=== PATIENT | female | born 1990 | race Caucasian/White ===

== ENCOUNTER → 2020-05-10 17:10 | Outpatient (CLI) | payer SELFPAY ==
[2020-05-10 18:03] LABS: HCG Quantitative /Beta subunit < 2.4 mIU/mL
== END ==
PROVIDERS: Referring Provider Specialist; Visit Provider Specialist
DX: Z34.90 Encounter for supervision of normal pregnancy, unspecified, unspecified trimester (principal)
CPT/HCPCS: 36415; 84702

== ENCOUNTER → 2020-08-27 11:27 | Outpatient (CLI) | payer OTHER, SELFPAY ==
[2020-08-27] MEDS: COVID-19 VACC #1, MRNA(MOD) 100 MCG/0.5 ML VIAL IM (11:35)
== END ==
PROVIDERS: Visit Provider Internal Medicine
DX: Z23 Encounter for immunization (principal)
CPT/HCPCS: 0011A; 91301

== ENCOUNTER → 2020-09-24 13:14 | Outpatient (CLI) | payer OTHER, SELFPAY ==
[2020-09-24] MEDS: COVID-19 VACC #2, MRNA(MOD) 100 MCG/0.5 ML VIAL IM (13:30)
== END ==
PROVIDERS: Visit Provider Internal Medicine
DX: Z23 Encounter for immunization (principal)
CPT/HCPCS: 0012A; 91301

== ENCOUNTER → 2024-05-26 11:47 | Outpatient (CLI) | payer OTHER, SELFPAY ==
[2024-05-26 12:54] LABS: Add Manual Diff / Slide Review NO; Basophils Absolute Auto 100 /uL (0-100); Basophils Percent Auto 0.5 % (0-2); Eosinophils Absolute Auto 300 /uL (0-450); Eosinophils Percent Auto 2.5 % (2-4); Hematocrit 35.6 % (36-46); Lymphocytes Absolute Auto 3000 /uL (1100-4500); Lymphocytes Percent Auto 22.3 % (25-40); Mean Corpuscular HGB Conc 33.8 % (30-36); Mean Corpuscular Volume 91.8 fL (80-100); Monocytes Absolute Auto 1000 /uL (0-900); Monocytes Percent Auto 7.2 % (3-14); Neutrophils Absolute Auto 9200 /uL (1500-7000); Neutrophils Percent Auto 67.5 % (50-75); Platelet Count 280 X10^3/uL (150-400); Red Blood Cell Count 3.88 X10^6/uL (4.0-5.2); Red Cell Distribution Width 13.2 % (11.6-14.8); White Blood Cell Count 13.6 X10^3/uL (4.5-11.0)
[2024-05-26 13:15] LABS: Natera Collection Specimen Collected
[2024-05-26 15:46] LABS: Hepatitis B Surface Antigen NEGATIVE s/c (NEGATIVE); Rubella Antibody IgG 27.6 IU/mL (>15)
[2024-05-26 16:06] LABS: HIV 1 & 2 Ab/Ag 4th Gen Combo NEGATIVE (NEGATIVE); Hep C Virus Ab w/Reflex Quant NEGATIVE s/c (NEGATIVE)
[2024-05-27 05:40] LABS: RPR Screen Non Reactive (Non Reactive)
[2024-05-27 08:36] LABS: Varicella IgG Antibody Reactive (Non Reactive)
== END ==
LOC: LAB 11:48
PROVIDERS: Referring Provider Student in an Organized Health Care Education/Training Program; Visit Provider Student in an Organized Health Care Education/Training Program
DX: Z34.81 Encounter for supervision of other normal pregnancy, first trimester (principal); Z3A.10 10 weeks gestation of pregnancy
CPT/HCPCS: 36415; 80055; 86787; 86803; 86850; 86900; 86901; 87086; 87389

== ENCOUNTER → 2024-08-07 14:28 | Outpatient (CLI) | payer OTHER, SELFPAY ==
--- NOTE | 2024-08-07 14:29 | DI.US.S_ITS ---
PROCEDURE: US OB >= 14 WEEKS FETUS INDICATIONS: 20 week anatomy scan OUTSIDE/PRIOR DATING DATA: Last menstrual period (LMP): Not provided LMP-based estimated date of delivery (LAZARA): 12/19/24. First dating scan (date and location): Not available Estimated date of delivery (LAZARA) from first dating scan: Not available. The calculations are made using the above LAZARA of 12/19/24 TECHNIQUE: Real-time scanning was performed of the fetus, with image documentation and biometric measurements. Endovaginal scanning: Not needed COMPARISON: None. FINDINGS: General: A single living intrauterine gestation is present. Presentation: Variable at this time. Placenta: Placental position is anterior , without previa. Amniotic fluid index: 15.1 cm, normal range is 5-24 cm. Single deepest vertical pocket is 4.1 cm. heart rate: 153 beats per minute. Maternal cervical canal: 3.8 cm long. Normal lower limit is 2.5 cm. biometrics: Biparietal diameter: 4.8 cm, 20 weeks 4 days Head circumference: 17.5 cm, 20 weeks 0 days Abdominal circumference: 16.6 cm, 21 weeks 4 days Femur length: 3.3 cm, 20 weeks 1 day Clinically estimated gestational age: 20 weeks 6 days Composite gestational age from present scan: 20 weeks 4 days and there has been appropriate interval growth. Estimated weight and percentile: 380 g, 43rd percentile Anatomic survey: Neuro: Ventricles are non-dilated at less than 10 mm. Cisterna magna is normal at 3-11 mm. Cerebellum is normal in size and morphology. Nuchal skin fold: Normal at less than 6 mm between 14-21 weeks gestational age. Face: Nose and lips, facial profile are normal. Spine: No evidence for spina bifida. Heart: 4-chambered heart is present, with normal ventricular outflow tracts. Diaphragm: Diaphragm is intact. Stomach: Left-sided stomach is present. Kidneys: No hydronephrosis. Normal is less than 5 mm in 2nd trimester, less than 7 mm in 3rd trimester. Cord: 3-vessel cord has possible marginal cord insertion at the superior placenta. Bladder: Normal in size. Extremities: All 4 extremities identified. IMPRESSION: Appropriate interval growth, no anomaly seen. Quality of visualization of the cord insertion is limited, and raises the question of possible marginal cord insertion at the superior placenta. Follow-up repeat limited OB ultrasound could be performed if clinically desired to attempt improve visualization of the cord insertion. We strive to produce accurate, complete, and clear reports of imaging services. To assist us in improving patient care, this report was composed using standard report templates and voice recognition software. Therefore, it may contain abnormal punctuation, insertions and/or omissions. Occasional wrong-word or sound-alike substitutions may occur. Though we review the report and make efforts to correct it, we do recommend that the report be read carefully in proper context to recognize any text inaccuracies. Dictated by: Mariusz Al M.D. on 08/08/2024 at 16:42 Approved by: Mariusz Al M.D. on 08/08/2024 at 16:47
== END ==
LOC: US 14:29
PROVIDERS: Referring Provider Student in an Organized Health Care Education/Training Program; Visit Provider Student in an Organized Health Care Education/Training Program
DX: Z34.82 Encounter for supervision of other normal pregnancy, second trimester (principal); Z3A.20 20 weeks gestation of pregnancy
CPT/HCPCS: 76811

== ENCOUNTER → 2024-09-18 10:01 | Outpatient (CLI) | payer OTHER, SELFPAY ==
[2024-09-18 11:28] LABS: Hematocrit 32.1 % (36-46); Hemoglobin 11.1 g/dL (12.0-16.0)
[2024-09-18 12:17] LABS: GTT (PREG) 1 Hour PP 50gm Dose 134 mg/dL (76-139)
== END ==
PROVIDERS: Referring Provider Student in an Organized Health Care Education/Training Program; Visit Provider Student in an Organized Health Care Education/Training Program
DX: Z13.1 Encounter for screening for diabetes mellitus (principal); Z13.0 Encounter for screening for diseases of the blood and blood-forming organs and certain disorders involving the immune mechanism
CPT/HCPCS: 36415; 82950; 85014; 85018

== ENCOUNTER → 2024-10-28 11:51 | Outpatient (CLI) | payer OTHER, SELFPAY ==
--- NOTE | 2024-10-28 11:52 | DI.US.S_ITS ---
PROCEDURE: US OB LIMITED INDICATIONS: Reeval cord insertion site and growth OUTSIDE/PRIOR DATING DATA: Last menstrual period (LMP): Not documented. LMP-based estimated date of delivery (LAZARA): 12/19/2024. First dating scan (date and location): 05/06/2024. Estimated date of delivery (LAZARA) from first dating scan: 12/20/2024. The calculations are made using the clinical LAZARA of 12/19/2024. TECHNIQUE: Real-time scanning was performed of the fetus, with image documentation and biometric measurements. Biophysical profile was also obtained. Endovaginal scanning: Not performed COMPARISON: [facility], , OB >= 14 WEEKS FETUS, 08/07/2024, 15:01. FINDINGS: General: A single living intrauterine gestation is present. Presentation: Vertex. Placenta: Placental position is anterior, without previa. Amniotic fluid index: 15.2 cm, normal range is 5-24 cm. Single deepest vertical pocket is 6.6 cm. heart rate: 136 beats per minute. Maternal cervical canal: 3.1 cm long. Normal lower limit is 2.5 cm. biometrics: Biparietal diameter: 8.2 cm, 33 weeks 0 days Head circumference: 29.7 cm, 32 weeks 6 days Abdominal circumference: 28.5 cm, 32 weeks 3 days Femur length: 6.2 cm, 32 weeks 2 days Clinically estimated gestational age: 32 weeks 4 days Composite gestational age from present scan: 32 weeks 5 days Estimated weight and percentile: 1987 g, 37th percentile Placental cord insertion 1.6 cm from the placental edge. IMPRESSION: 1. Moore living intrauterine at 32 weeks 5 days based on today's ultrasound. 2. Normal placenta and amniotic fluid. 3. Marginal cord insertion on the placenta. We strive to produce accurate, complete, and clear reports of imaging services. To assist us in improving patient care, this report was composed using standard report templates and voice recognition software. Therefore, it may contain abnormal punctuation, insertions and/or omissions. Occasional wrong-word or sound-alike substitutions may occur. Though we review the report and make efforts to correct it, we do recommend that the report be read carefully in proper context to recognize any text inaccuracies. Dictated by: Carlitos Sweet M.D. on 10/28/2024 at 21:21 Approved by: Carlitos Sweet M.D. on 10/28/2024 at 21:27
== END ==
PROVIDERS: Referring Provider Student in an Organized Health Care Education/Training Program; Visit Provider Student in an Organized Health Care Education/Training Program
DX: Z87.59 Personal history of other complications of pregnancy, childbirth and the puerperium (principal); O43.123 Velamentous insertion of umbilical cord, third trimester; Z3A.32 32 weeks gestation of pregnancy
CPT/HCPCS: 76815

== ENCOUNTER → 2024-11-25 10:33 | Outpatient (CLI) | payer OTHER, SELFPAY ==
[2024-11-26 12:39] LABS: Strep Grp B PCR NEG for Grp B Strep
== END ==
PROVIDERS: Visit Provider Student in an Organized Health Care Education/Training Program
DX: Z36.85 Encounter for antenatal screening for Streptococcus B (principal)
CPT/HCPCS: 87653

== ENCOUNTER 2024-12-12 07:03 | Inpatient (IN) | payer OTHER, SELFPAY ==
--- NOTE | 2024-12-12 07:56 | PM.OBHP.IH.1 ---
OB HPI Date/Time Date of admission: 12/12/24 Date Patient Seen: 12/12/24 Time Patient Seen: 12:00 History of Present Condition Chief complaint: INDUCTION LAZARA Calculator Estimated Delivery Date Method Current WG Current Estimate 12/19/24 LMP (Uncertain) 39w 0d Other Estimates 12/20/24 Ultrasound #1 38w 6d Estimated Gestational Age (weeks): 39.0 : 3 Para: 2 Narrative: 34yo at 39w0d d=7wk US presents for scheduled IOL In setting of AMA, marginal cord insertion, prolonged latent labor. course notable for last delivery 9yrs ago, marginal cord insertion with appropriate interval growth monitoring, h/o tobacco exposure in early , h/o maternal SVT necessitating cardioversion in (cleared by [facility] for local delivery), GERD. course notable for h/o prior SGA . Pt states intermittent contractions, increasing in regularity with initiation of IV pitocin for augmentation. +FM, denies VB, LOF, dysuria. Amenable to recommendation for AROM for further augmentation. care: good care Dating criteria OB: LMP confirmed by 1st trimester US Ultrasounds: normal mid trimester US and abnormal US findings (marginal cord insertion) Obstetrical complications: none Medical complications OB: other (maternal SVT ) Indications Indication for induction OB: other (marginal cord insertion, AMA, prolonged latent labor ) Preadmission Labs Last OB Lab Results: Blood Type A Positive Today, 07:40 Antibody Screen Negative Today, 07:40 Hct, (36-46) 31.9 % L Today, 07:40 Hgb, (12.0-16.0) 11.2 g/dL L Today, 07:40 Hep Bs Antigen, (NEGATIVE) Negative s/c 05/26/24, 12:15 Hepatitis C Antibody, (NEGATIVE) Negative s/c 05/26/24, 12:15 Rubella Antibody, (>15) 27.6 IU/mL 05/26/24, 12:15 VZV IgG Antibody, (Non Reactive) Reactive 05/26/24, 12:15 Glucose 1 Hr 50 gm, (76-139) 134 mg/dL 09/18/24, 10:04 Group B Strep (PCR) Neg for grp b strep 11/25/24, 10:30 -: Chlamydia screen: negative and Gonorrhea screen: negative -: PAP smear: Normal Genetic Screens: Cell-free DNA: Normal and Alpha-fetoprotein: Normal Prior (ies) Past Pregnancies Del. Date GA/Weeks Labor Lgth Wt Sex Route Outcome Anesthesia Place Delv Breastfeed Preg Comp Name 04/17/14 39 27 8 lb Male vaginal forceps live - full term epidural [place], [place] 9 weeks none Laura 12/22/15 39 4 5 lb 5 oz Female vaginal live - full term epidural [place] 19 months intrauterine growth restr Myah Delivery Date: 12/22/15 Last Updated by: Adina Louie RN Measured normal (size was a surprise), precipitous delivery, rapid 2nd stage Evaluation Evaluation Baseline heart rate: 140 Variability: Moderate (6-25) monitor accelerations: Present Monitor Decelerations: Absent Uterine Contraction Intensity: Mild Category of Tracing: Reactive Status: Category l Dilation (cm): 5 Effacement (%): 80 Dilation: >/=5 cm Effacement: >/=80% station: 0 Position of cervix: mid Consistency: soft Holguin score: 11 [facility] Medical History (Updated 09/30/24 @ 13:51 by Rebecca Dutton DO) Carrier of spinal muscular atrophy Cystic fibrosis carrier, antepartum Heavy menstrual period (~2013) Hemorrhoid (~2013) Shingles Migraine without aura Dog bite (~2019) Surgical History (Updated 04/24/24 @ 13:14 by Adina Louie RN) H/O unilateral oophorectomy (~1993) Family History (Updated 05/14/24 @ 19:25 by Ericka Campos) Mother Diabetes mellitus Hypertension Heart disease Heart attack Brain tumor History of coronary artery stent placement Hyperlipidemia Father No problems noted. Grandmother Factor V Leiden Skin cancer Hypertension Grandfather Oral cancer Hypertension Stroke Social History marital status: unmarried,living together number of children: 2 household members: significant other and children lives independently: Yes caregiver/support person: Yes housing: house pets and animals: Yes (dogs, cat) education level: college occupational status: employed current occupational exposures/hazards: Yes (aware of precautions) special basilia needs: No travel history: recent seatbelt use: always helmet use: Yes water heater temp set < 120 deg: Yes working smoke detector in home: Yes fire extinguisher in home: No carbon monox detector in home: Yes firearms in home: No do you feel safe at home: Yes Tobacco: How many years used: 2 quit status: considering quitting second hand exposure: Yes (s/o smokes but is trying to quit) alcohol intake: never substance use type: does not use during the past year weight has: remained stable well-balanced diet: daily or most days daily servings fruits/ve or more times/day caffeine: Yes Type(s) of exercise: other Meds Home Medications and Allergies Home Medications ?Medication ?Instructions ?Recorded ?Confirmed ?Type vitamin-ferrous sulfate 1 tab PO DAILY 04/24/24 12/12/24 History 27 mg iron-folic acid 0.8 mg tablet famotidine 40 mg tablet 40 mg PO DAILY #30 tabs 07/01/24 12/12/24 Rx Allergies Allergy/AdvReac Type Severity Reaction Status Date / Time No Known Drug Allergies Allergy Verified 12/12/24 09:19 Review of Systems Review of Systems ROS: Yes All systems reviewed with the patient and are negative except as otherwise documented OB Exam Narrative Exam Narrative: maternal VSS/afebrile, reviewed in OBIX Resp Effort & Inspection: normal respiratory effort and able to speak in complete sentences Cardio Rate: regular rate Extremities Lower extremity: Yes normal to inspection GI Palpation: Yes soft Other: gravid, theresa cephalic 7# External Female Exam: Yes normal external appearance Objective Labs 12/12/24 07:40 Assessment and Plan Assessment and Plan Assessment and Plan narrative: 34yo at 39w0d d=7wk US presents for augmentation of labor in setting of AMA, marginal cord insertion, prolonged latent labor Augmentation of labor regular contractions with low-dose IV pitocin AROM clear fluid GBS negative monitor patient for s/sx of SVT, asymptomatic since early Patient is consented for vaginal, vaginal operative and delivery as well as transfusion of blood products as medically indicated anticipate Time-Based Coding :: [TOTAL MINUTES] spent with patient and on the chart (including review of chart, obtaining history, exam, reviewing outside data, placing orders, documenting exam and treatment plan, and counseling patient) on [DATE].
[2024-12-12 08:15] LABS: Add Manual Diff / Slide Review NO; Hematocrit 31.9 % (36-46); Hemoglobin 11.2 g/dL (12.0-16.0); Lymphocytes Absolute Auto 2700 /uL (1100-4500); Mean Corpuscular HGB Conc 35.1 % (30-36); Mean Corpuscular Hemoglobin 32.2 PG (26-34); Mean Corpuscular Volume 91.8 fL (80-100); Platelet Count 211 X10^3/uL (150-400)
[2024-12-12] MEDS: LACTATED RINGERS 1,000 ML 100 ML IV (08:54)
[2024-12-12] MEDS: OXYTOCIN PREMIX 30 UNIT/500 ML PLAST..BAG IV (08:55)
[2024-12-12] MEDS: LACTATED RINGERS 500 ML 1000 ML IV (08:55)
[2024-12-12 09:15] VITALS: BP 107/67
[2024-12-12] MEDS: FAMOTIDINE 20 MG TABLET 40 MG PO (10:25)
[2024-12-12] MEDS: ePHEDrine 50 MG/ML VIAL IV (14:17)
--- NOTE | 2024-12-12 14:38 | PM.AN.REGBLK ---
Regional Block Pre-procedure Procedure: Continuous Lumbar Epidural for L&D (with dural puncture) Attending OB provider: Rosy La PMH/ROS narrative: 34yo female in labor requesting epidural. See pre-anesthesia evaluation for further details. ASA Class: II Labs: Hct 31.9 % (36-46) L 12/12/24 07:40 Plt Count 211 X10^3/uL (150-400) 12/12/24 07:40 Medications: Current Medications Generic Name Dose Route Start Last Admin Trade Name Freq PRN Reason Stop Dose Admin Calcium Carbonate 1,000 mg 12/12/24 07:55 Calcium Carbonate 500 Mg Tab PO Q2HR PRN Dyspepsia Carboprost Tromethamine 250 mcg 12/12/24 07:55 Carboprost 250 Mcg/Ml Ampul IM Q90M PRN Bleeding Diphenhydramine HCl 25 mg 12/12/24 14:36 Diphenhydramine 50 Mg/Ml Vial IV Q10M PRN Pruritis Ephedrine Sulfate 5 mg 12/12/24 14:17 12/12/24 14:17 Ephedrine 50 Mg/Ml Vial IV 5 mg NOW PRN Administration Blood Pressure - Low Ephedrine Sulfate 10 mg 12/12/24 14:36 Ephedrine 50 Mg/Ml Vial IV Q5M PRN Blood pressure decrease more than 20% of baseline. Famotidine 40 mg 12/12/24 09:00 12/12/24 10:25 Famotidine 20 Mg Tablet PO 40 mg BID MIKE Administration Oxytocin/Lactated Ringer's 30 unit in 500 mls @ 200 mls/hr 12/12/24 07:55 Oxytocin Premix IV CONT PRN Bleeding Protocol Tranexamic Acid 1,000 mg/ 100 mls @ 600 mls/hr 12/12/24 07:55 Sodium Chloride IV NOW PRN Bleeding Oxytocin/Lactated Ringer's 30 unit in 500 mls @ 2 mls/hr 12/12/24 08:00 12/12/24 08:55 Oxytocin Premix IV 2 milliunit/min TITRATE MIKE 2 mls/hr Protocol Administration 2 MILLIUNIT/MIN Lactated Ringer's 1,000 mls @ 100 mls/hr 12/12/24 08:00 12/12/24 08:54 Lactated Ringers IV 12/12/24 17:59 100 mls/hr CONT MIKE Administration FENT 2MCG/ML BUPIV 0.125% EPI 200 mcg in 100 mls @ 6 mls/hr 12/12/24 14:45 Fentanyl/Bupiv/Ns 2mcg/Ml - 0.125% EPIDURAL CONT MIKE Lidocaine HCl 20 ml 12/12/24 07:55 Lidocaine 1% 20 Ml INJ INTRA-OP PRN Post Delivery Methylergonovine Maleate 0.2 mg 12/12/24 07:55 Methylergonovine 0.2 Mg Tablet PO Q6HR PRN Heavy Bleeding Methylergonovine Maleate 0.2 mg 12/12/24 07:55 Methylergonovine 0.2 Mg/Ml Vial IM NOW PRN Bleeding Mineral Oil 30 ml 12/12/24 07:55 Mineral Oil 30 Ml Udc TOP PRN PRN Version Misoprostol 800 mcg 12/12/24 07:55 Misoprostol 200 Mcg Tablet AK NOW PRN Bleeding Misoprostol 400 mcg 12/12/24 07:55 Misoprostol 200 Mcg Tablet SL NOW PRN Bleeding Nalbuphine HCl 2.5 mg 12/12/24 14:36 Nalbuphine 20 Mg/Ml Ampul IV Q10M PRN Pruritis Naloxone HCl 0.2 mg 12/12/24 07:55 Naloxone 0.4 Mg/Ml Vial IV Q2MIN PRN Opiate Reversal Ondansetron HCl 4 mg 12/12/24 07:55 Ondansetron 4 Mg/2 Ml Inj IV Q4HR PRN Nausea And Vomiting Oxytocin 10 unit 12/12/24 07:55 Oxytocin 10 Unit/Ml Vial IM NOW PRN Bleeding Allergies: Allergies Allergy/AdvReac Type Severity Reaction Status Date / Time No Known Drug Allergies Allergy Verified 12/12/24 09:19 Procedure Insertion date: 12/12/24 Insertion time: 13:56 Prep/Local: 1% lidocaine (Chloraprep) Interspace: L3-4 Patient position: sitting Needle: 18 gauge Brittany (with 27g pencil point needle for dural puncture x1) Loss of resistance with: saline MIKHAIL at (cm): 5 Catheter placed at SKIN (cm): 13 Catheter in SPACE (cm): 8 Insertion: Yes Blood Initial Medications TEST DOSE time: 13:56 (13:25 on first attempt) TEST DOSE: 1.5% lidocaine with epinephrine 1:200k (mL): 3 BOLUS DOSE time: 13:59 (13:26 on first attempt) Infusion INFUSION: 0.125% bupivacaine and with fentanyl 2 mcg/mL Initial rate (mL/hr): 8 Subsequent interventions: Epidural required two placements. First placement at L4-5 had positive blood, then stopped on aspiration, gave test dose with HR increase from 85 to 112 which quickly resolved, aspirated prior to bolus with positive blood. Taped epidural in place and waited about 15-20 minutes while preparing the pump. Pt did not experience relief with contractions and repeat aspiration was positive for blood. First epidural catheter was removed. Second epidural placement at L3-4 was uneventful. Epidural pump was started at 14:06. Checked on pt about 10 minutes later, and she reported significant relief, able to move BLE. Post-procedure Anesthesia date START: 12/12/24 Anesthesia time START: 13:05 Anesthesia date END: 12/12/24 Anesthesia time END: 15:22 Post-procedure Anesthesia Assessment: Yes CV function: HR/BP stable, Yes Resp function: RR/sat/airway adequate, Yes Post-op hydration adequate, Yes Pain control adequate, Yes Nausea & vomiting absent, Yes Temperature > 36 C, Yes Mental status appropriate and No Anesthesia complications
--- NOTE | 2024-12-12 15:45 | PM.OBPRVD ---
Labor & Delivery Delivery date: 12/12/24 Delivery Time: 15:22 Intrapartal Events: None Cervical ripening method: none Induction method: per pitocin protocol Delivery augmentation: rupture of membranes Delivery monitor: external FHT Route of delivery: Episiotomy description: None L&D Laceration Description: Perineal - 2nd Degree Delivery repair: vicryl Estimated blood loss (mL): 200 Anesthesia Type: Epidural Complications: none Narrative: Patient in dorsal lithotomy position, C/C/+2 with strong urge to push. Rapid descent of station to +4 and then turtle sign identified, verbalized to staff. Slow delivery over perineum in straight OA position with restitution to maternal R. Immediate gentle downward traction applied with easy delivery of anterior shoulder followed by delivery of posterior shoulder and body, placed on maternal abdomen. immediately vigorous with gentle tactile stimulation. Delayed cord clamping x2 min. Cord clamped x2 and cut by FOB, 3VC noted. Cord blood sample obtained. Rapid delivery of placenta with gentle downward traction, inspected and noted to be intact. Fundus palpated and noted to be firm. Perineal exam revealed a shallow second degree laceration repaired with 2-0 vicryl in single figure of 8 suture. Counts correct x2. Baby 1: gender: Male Presentation: vertex Position: Right Occiput Anterior Placenta delivery description: Spontaneous Cord Vessel Description: 3 Vessels score (1 min): 9 score (5 min): 9 Plan for aftercare: Routine care
[2024-12-12] MEDS: IBUPROFEN 600 MG TABLET PO ×2 (16:58→23:15)
[2024-12-12] MEDS: ACETAMINOPHEN 325 MG TABLET 650 MG PO ×2 (16:58→23:15)
[2024-12-12] MEDS: DERMOPLAST SPRAY 20% 60 ML 1 SPRAY TOP (16:59)
[2024-12-13] MEDS: IBUPROFEN 600 MG TABLET PO ×2 (05:45→12:08)
[2024-12-13] MEDS: ACETAMINOPHEN 325 MG TABLET 650 MG PO ×2 (05:45→12:08)
[2024-12-13 06:04] LABS: Add Manual Diff / Slide Review NO; Hematocrit 33.4 % (36-46); Hemoglobin 11.7 g/dL (12.0-16.0); Lymphocytes Absolute Auto 3200 /uL (1100-4500); Mean Corpuscular HGB Conc 35.0 % (30-36); Mean Corpuscular Hemoglobin 32.4 PG (26-34); Mean Corpuscular Volume 92.6 fL (80-100); Platelet Count 208 X10^3/uL (150-400)
[2024-12-13] MEDS: LANOLIN OINT 7 GM 1 APPLIC TOP ×2 (06:29→12:46)
[2024-12-13] MEDS: OXYCODONE IR 5 MG TABLET PO ×2 (07:58→12:08)
[2024-12-13] MEDS: DOCUSATE 100 MG CAPSULE PO (08:30)
--- NOTE | 2024-12-13 10:24 | P.DS_ITS ---
Discharge Providers Provider Date of admission: 12/12/24 07:03 Discharge Date: 12/13/24 Primary care physician: Doctor Orly MD Consults: 12/12/24 07:55 Consult to Anesthesiology Urgent Comment: Consulting Provider: Anesthesiologist Reason for consultation: Epidural 12/12/24 15:51 Consult to Putty And Patch Worker Routine Comment: Discharge provider: Royce Pepper MD Summary Hospital Course Date Patient Seen: 12/13/24 Time Patient Seen: 10:25 Diagnoses: Intrauterine , 39+ 0 weeks gestational age Advanced maternal age Marginal cord insertion Hospital Course: 34yo at 39w0d d=7wk US presents for scheduled IOL In setting of AMA, marginal cord insertion, prolonged latent labor. course notable for last delivery 9yrs ago, marginal cord insertion with appropriate interval growth monitoring, h/o tobacco exposure in early , h/o maternal SVT necessitating cardioversion in (cleared by [facility] for local delivery), GERD. course notable for h/o prior SGA . Pt states intermittent contractions, increasing in regularity with initiation of IV pitocin for augmentation. +FM, denies VB, LOF, dysuria. Amenable to recommendation for AROM for further augmentation. Pitocin augmentation was then initiated on the morning of 12/12/2024 followed by AROM and placement a laboring epidural. Patient delivered spontaneously at 3:22 p.m. on that afternoon a viable male with Apgars of 9/9 and a weight 3037 g (6 lb 11.1 oz). Following delivery both mother and baby have done exceptionally well with the mother experiencing prompt return of bowel and bladder function, she is ambulating independently, tolerating regular diet, and her pain is well relieved with oral pain medications. She will be discharged at this time to home in an afebrile normotensive condition after counseling regarding precautionary symptoms, limitations activity, medications, plans for follow-up which will be in 6 weeks. Medications at discharge will include resumption of all preadmission medications as well as ibuprofen 600 mg p.o. q.6 hours as needed for pain, dispense 30 with 2 refills, and oxycodone 5 mg every 4-6 hours as needed for pain, dispense 10 with no refills. Peripartum Data Infant Delivery Method: Natural Vaginal Laceration Description: Perineal - 2nd Degree Episiotomy description: None Procedures: Continuous lumbar epidural Spontaneous vaginal with repair of second-degree perineal laceration complications: none 1: Gender: Male Status at Discharge Cognitive/behavioral status at discharge: oriented Functional status at discharge: independent ambulation Overall status at discharge: patient is progressing back to baseline Time Spent with Patient Time attestation: Total time spent providing and/or coordinating discharge services: 15 Time spent: Less than 30 minutes Objective Labs 12/13/24 05:57 Labs: Laboratory Results - last 24 hr 12/13/24 05:57 WBC 14.8 H RBC 3.61 L Hgb 11.7 L Hct 33.4 L MCV 92.6 MCH 32.4 MCHC 35.0 RDW 13.3 Plt Count 208 Neut % (Auto) 68.2 Lymph % (Auto) 21.5 L [place] % (Auto) 8.4 Eos % (Auto) 1.5 L Baso % (Auto) 0.4 Neut # (Auto) 78509 H Lymph # (Auto) 3200 [place] # (Auto) 1300 H Eos # (Auto) 200 Baso # (Auto) 100 Exam Const General: cooperative and comfortable Nutritional Appearance: average body habitus Orientation: alert and oriented x3 HENMT Head: normal to inspection, atraumatic and abrasion Ears: hearing grossly normal bilaterally Face and sinus: face symmetric Eyes General: appearance normal, both eyes and all related structures Conjunctivae: conjunctivae normal Sclera: sclerae normal EOM: EOM intact bilaterally Neck Neck: normal visual inspection Resp Effort & Inspection: normal respiratory effort and able to speak in complete sentences GI Inspection: normal to inspection Palpation: soft and no hepatosplenomegaly External Female Exam: other (No significant bleeding noted) Extrem General: no calf tenderness Psych Appearance: grossly normal Mental Status: mental status grossly normal Speech and Movement: speech and movement normal Mood: congruent mood Affect: normal affect Attitude: cooperative Thought Process: normal Thought Content: normal Judgment: judgment good Discharge Plan Discharge Plan Patient Disposition: Home Provider Discharge Comment: Please review the written instructions you received when you were discharged from the hospital. Your follow-up appointment will be scheduled for 6 weeks after delivery and we look forward to seeing you then. If however in the meanwhile you have any questions, concerns, or other issues, please contact the office either by phone at [phone], or via the patient portal. Discharge orders & Medications Prescriptions: New ibuprofen 600 mg Tablet 600 mg PO Q6HR PRN (Reason: Fever/Mild Pain (1-3)) Qty: 30 2RF oxycodone 5 mg Tablet 5 mg PO Q4-6H PRN (Reason: Pain, Moderate (4-6)) Qty: 10 0RF Continued famotidine 40 mg tablet 40 mg PO DAILY Qty: 30 3RF vit-ferrous sulfat-FA 27 mg iron- 0.8 mg tablet 1 tab PO DAILY Follow up/Referrals: Doctor Villalba MD [Primary Care Provider, Medical] Rosy La MD [Physician, MANAGER [employer]] Referral Note: follow-up appointment made for January 23 at 10:45 AM. Discharge Health Status Multidrug resistant organism: No MDRO Diet/Activity/Treatments Diet: Diet as Tolerated Activity: As tolerated Skin/Wound/Dressing Care Report to your healthcare provider any signs of infection, such as:: chills, fever, increased pain, unusual drainage and unusual redness Dressing: N/A Visit Report/Discharge Packet Instructions: DI for Labor and Delivery, Vaginal , DI for and Nipple Soreness, DI for Prescription Opioid Use Discharge Data Primary Care Provider: Doctor Orly Attending Provider: Rebecca Dutton Admit Date/Time: 12/12/24 07:03
[2024-12-13] MEDS: DERMOPLAST SPRAY 20% 60 ML 1 SPRAY TOP (12:46)
[2024-12-13 14:20] VITALS: BP 107/67; PULSE 72; RESP 16; TEMP 36.4
== END 2024-12-13 14:20 | disposition home or self-care (01) | DRG 560 ==
PROVIDERS: Obstetrics & Gynecology; Admitting Provider Student in an Organized Health Care Education/Training Program; Referring Provider Student in an Organized Health Care Education/Training Program; Visit Provider Student in an Organized Health Care Education/Training Program
DX: O43.193 Other malformation of placenta, third trimester (principal); Z3A.39 39 weeks gestation of pregnancy; Z37.0 Single live birth; O99.334 Smoking (tobacco) complicating childbirth; O63.0 Prolonged first stage (of labor); O70.1 Second degree perineal laceration during delivery
CPT/HCPCS: 36415; 59050; 59409; 85025; 86850; 86900; 86901; G0378; A9270; G0379; J2590